=== PATIENT | female | born 1950 | race Caucasian/White ===

== ENCOUNTER 2023-02-24 17:24 | Emergency (ER) | payer MEDICARE, OTHER ==
[~2023-02-24] VITALS: Ht 157.5 cm; Wt 47.7 kg
[~2023-02-24 17:24] MED LIST: ALBU17AE26 PO; ALPR-624 PO; ASPI-1265 PO; BACL10TA2 PO; BUDE10.2 PO; CIPR250T26 PO; CITA20TA28 PO; FAMO20TA8 PO; IBUP-1986 PO; METR-159 PO; PER5325T PO; TRIA1TAB5 PO
[2023-02-25 00:13] VITALS: BP 142/85
[2023-02-25] MEDS ORDERED: ibuprofen tablet 400 MG TABLET PO ONE (01:30)
== END 2023-02-25 06:28 | disposition home or self-care (01) ==
LOC: ER 17:25
DX: S80.12XA Contusion of left lower leg, initial encounter (principal); R60.0 Localized edema; W18.39XA Other fall on same level, initial encounter; Y93.89 Activity, other specified; Y92.89 Other specified places as the place of occurrence of the external cause; Y99.8 Other external cause status
CPT/HCPCS: 71045; 73502; 73551; 73590; 93971; 99284

== ENCOUNTER 2023-03-06 12:33 | Outpatient (CLI) | payer MEDICARE, OTHER | END 2023-03-06 23:59 | disposition home or self-care (01) | LOC: VAS 12:33 | PROVIDERS: ATTEND Family Medicine | DX: R60.0 Localized edema (principal) | CPT/HCPCS: 93971 ==

== ENCOUNTER 2024-05-30 17:29 | Inpatient (IN) | payer MEDICARE, OTHER ==
[~2024-05-30] VITALS: Ht 160 cm; Wt 50.6 kg
[2024-05-30 18:27] LABS: BASOPHILS % (AUTO) 0.2 % (0-1); EOSINOPHILS % (AUTO) 0 % (0-6); HEMATOCRIT 35.2 % (35.0-45.0); LYMPHOCYTES # (AUTO) 0.7 X10'3 (1.1-4.8); LYMPHOCYTES % (AUTO) 5.7 % (21-51); MEAN CORPUSCULAR HEMOGLOBIN 25.3 PG (27.0-31.0); MEAN CORPUSCULAR HGB CONC 31.3 g/dL (33.0-36.5); MEAN PLATELET VOLUME 7.4 FL (7.4-10.4); MONOCYTES # (AUTO) 1.5 X10'3 (0-0.9); MONOCYTES % (AUTO) 11.1 % (2-12); NEUTROPHILS # (AUTO) 10.9 X10'3 (1.8-7.7); PLATELET COUNT 305 X10'3 (140-440); RED BLOOD COUNT 4.34 X10'6 (4.20-5.60); RED CELL DISTRIBUTION WIDTH 19.1 % (11.5-14.5); WHITE BLOOD COUNT 13.1 X10'3 (4.5-11.0)
[2024-05-30 18:39] LABS: BILIRUBIN,URINE NEGATIVE (Neg); CLARITY,URINE CLEAR (Clear); COLOR,URINE YELLOW (Yellow); GLUCOSE, URINE NEGATIVE (Neg); KETONES,URINE TRACE mg/dl (Neg); LEUKOCYTE ESTERASE ,URINE NEGATIVE (Neg); NITRITES, URINE NEGATIVE (Neg); OCCULT BLOOD,URINE NEGATIVE (Neg); PROTEIN,URINE NEGATIVE (Neg); UROBILINOGEN,URINE 0.2 E.U/dL (0.2-1.0)
[2024-05-30 18:42] LABS: ALBUMIN 3.4 G/DL (3.4-5.0); ANION GAP 7 (8-16); BLOOD UREA NITROGEN 22 MG/DL (7-18); BUN/CREATININE RATIO 23.9 (10.0-20.0); CALCIUM 8.5 MG/DL (8.5-10.1); CHLORIDE 104 MMOL/L (99-107); CREATININE 0.92 MG/DL (0.40-0.90); GLUCOSE 107 MG/DL (70-104); SODIUM 139 MMOL/L (135-145); TOTAL CARBON DIOXIDE 27.6 MMOL/L (24-32); eCRCL 42 ML/MIN; eGFR 60 ML/MIN
[2024-05-30 18:51] LABS: UA COLLECTION TYPE STRAIGHT CATH
[2024-05-30] MEDS ORDERED: iohexol 300mg/ml 100ml inj. ONE (18:51)
[2024-05-30 19:12] LABS: ALANINE AMINOTRANSFERASE 32 U/L (12-78); ALBUMIN/GLOBULIN RATIO 1.1 (1.1-1.5); ALKALINE PHOSPHATASE 80 IU/L (46-116); ASPARTATE AMINO TRANSFERASE 29 U/L (10-37); BILIRUBIN,DIRECT 0.1 MG/DL (0-0.3); BILIRUBIN,TOTAL 0.4 MG/DL (0.1-1.0); CREATINE KINASE 386 U/L (26-192); TOTAL PROTEIN 6.6 G/DL (6.4-8.2)
[2024-05-30] MEDS: normal saline 1000ml 1,000 ML IV ONE (19:19)
[2024-05-30] MEDS: cefepime 2g/NS 100ml ADVANTAGE 100 ML IV SCH (19:19)
[2024-05-30] MEDS: vancomycin/NS 1 GM ADD-VANTAGE 250 ML X 1 DOSE IV ONE (19:53)
[2024-05-30] MEDS: metroNIDAZOLE-Flagyl 500mg/NS 100 ML IV STA (20:55)
[2024-05-30] MEDS: morphine 2 MG/ML inj. syringe IV ONE (21:52)
[2024-05-30] MEDS ORDERED: magnesium Cl slow-release 64mg tablet PO PRN (22:50)
[2024-05-30] MEDS ORDERED: mag hydrox/Alum hydrox/simeth 30ml oral suspension PO PRN (22:50)
[2024-05-30] MEDS ORDERED: magnesium sulf-water 4G/100mL 100 ML IV PRN (22:50)
[2024-05-30] MEDS ORDERED: potassium Cl 20 mEq SR tablet PO PRN (22:50)
[2024-05-30] MEDS ORDERED: magnesium hydroxide 30ml (MOM) UD suspension PO PRN (22:50)
[2024-05-30] MEDS ORDERED: magnesium sulf-water 2g/50mL 50 ML IV PRN (22:50)
[2024-05-30] MEDS ORDERED: potassium Cl 40MEQ/1/2NS 520ml 520 ML IV PRN (22:50)
[2024-05-30] MEDS: normal saline 1000ml 1,000 ML IV SCH (23:14)
[2024-05-30 23:23] LABS: MAGNESIUM 1.7 MG/DL (1.5-2.4); PHOSPHORUS 3.9 MG/DL (2.3-4.5); PRO BRAIN NATRIURETIC PEPTIDE 251 PG/ML (0-450)
[2024-05-30 23:28] LABS: HEMOGLOBIN A1C 5.4 % (4.5-6.2)
[2024-05-31] VITALS (7 sets, daily range): BP systolic 149–151; BP diastolic 52–94; PULSE 76–91; RESP 16–20; TEMP 97.8–98.5; O2SAT 91–98
[2024-05-31 00:25] LABS: THYROID STIMULATING HORMONE 0.93 ulU/ml (0.34-4.50)
[2024-05-31] MEDS: morphine 2 MG/ML inj. syringe IV PRN (02:12)
[2024-05-31] MEDS ORDERED: LORazepam 2 mg/ml vial IV PRN (02:45)
[2024-05-31 04:07] LABS: EOSINOPHILS % (AUTO) 0.2 % (0-6)
[2024-05-31 04:08] LABS: BASOPHILS % (AUTO) 0.3 % (0-1); HEMATOCRIT 30.7 % (35.0-45.0); HEMOGLOBIN 9.5 g/dl (12.0-16.0); LYMPHOCYTES # (AUTO) 0.9 X10'3 (1.1-4.8); LYMPHOCYTES % (AUTO) 9.4 % (21-51); MEAN CORPUSCULAR HEMOGLOBIN 25.3 PG (27.0-31.0); MEAN CORPUSCULAR VOLUME 81.6 FL (78-98); MEAN PLATELET VOLUME 7.3 FL (7.4-10.4); MONOCYTES # (AUTO) 1.5 X10'3 (0-0.9); MONOCYTES % (AUTO) 15.3 % (2-12); NEUTROPHILS # (AUTO) 7.3 X10'3 (1.8-7.7); NEUTROPHILS % (AUTO) 74.8 % (42-75); PLATELET COUNT 272 X10'3 (140-440); RED BLOOD COUNT 3.76 X10'6 (4.20-5.60); RED CELL DISTRIBUTION WIDTH 18.9 % (11.5-14.5); WHITE BLOOD COUNT 9.7 X10'3 (4.5-11.0)
[2024-05-31 04:23] LABS: ALANINE AMINOTRANSFERASE 27 U/L (12-78); ALBUMIN 2.9 G/DL (3.4-5.0); ALKALINE PHOSPHATASE 67 IU/L (46-116); ANION GAP 7 (8-16); ASPARTATE AMINO TRANSFERASE 22 U/L (10-37); BILIRUBIN,TOTAL 0.4 MG/DL (0.1-1.0); BLOOD UREA NITROGEN 17 MG/DL (7-18); BUN/CREATININE RATIO 23.3 (10.0-20.0); CALCIUM 8.1 MG/DL (8.5-10.1); CHLORIDE 111 MMOL/L (99-107); CHOL/HDL RATIO 1.9 (0.00-4.99); CHOLESTEROL 150 MG/DL (0-200); CREATININE 0.73 MG/DL (0.40-0.90); GLUCOSE 98 MG/DL (70-104); HDL CHOLESTEROL 77 MG/DL (35-60); LDL CHOLESTEROL 58 MG/DL (50-100); MAGNESIUM 1.6 MG/DL (1.5-2.4); POTASSIUM 3.7 MMOL/L (3.5-5.1); SODIUM 143 MMOL/L (135-145); TOTAL CARBON DIOXIDE 24.9 MMOL/L (24-32); TOTAL PROTEIN 5.7 G/DL (6.4-8.2); TRIGLYCERIDES 94 MG/DL (20-135); eCRCL 53 ML/MIN; eGFR 78 ML/MIN
[2024-05-31 04:48] LABS: BASOPHILS % (MANUAL) 1 % (0-1); LYMPHOCYTES % (MANUAL) 7 % (21-51); MONOCYTES % (MANUAL) 9 % (2-12); NEUTROPHILS % (MANUAL) 83 % (42-75); TOTAL CELLS COUNTED 100
[2024-05-31 04:49] LABS: PLATELET ESTIMATE NORMAL
[2024-05-31 04:50] LABS: ANISOCYTOSIS 1+; ELLIPTOCYTES FEW
[2024-05-31] MEDS: ipratropium/albuterol 3ml nebule NEB PRN (07:16)
[2024-05-31] MEDS: docusate sod 100mg capsule PO SCH (08:00)
[2024-05-31] MEDS: K and/or MAG REPLACEMENT MC SCH (08:00)
[2024-05-31] MEDS: ondansetron/PF 4mg/2ml inj IV PRN (08:59)
[2024-05-31] MEDS: CefTRIAXone/D5W-Rocephin 1gm 50 ML IV SCH (09:33)
[2024-05-31] MEDS: metroNIDAZOLE-Flagyl 500mg/NS 100 ML IV SCH (13:39)
[2024-06-01] MEDS: acetaminophen 325mg tablet PO PRN (00:16)
[2024-06-01 02:40] VITALS: PULSE 83; RESP 16; O2SAT 94
[2024-06-01 06:00] VITALS: BP 167/74; PULSE 67; RESP 18; TEMP 98.8; O2SAT 98
[2024-06-01 06:09] LABS: BASOPHILS % (AUTO) 0.6 % (0-1); EOSINOPHILS # (AUTO) 0.1 X10'3 (0-0.9); EOSINOPHILS % (AUTO) 0.8 % (0-6); HEMATOCRIT 29.5 % (35.0-45.0); HEMOGLOBIN 9.2 g/dl (12.0-16.0); LYMPHOCYTES # (AUTO) 1.2 X10'3 (1.1-4.8); LYMPHOCYTES % (AUTO) 19.9 % (21-51); MEAN CORPUSCULAR HEMOGLOBIN 25.2 PG (27.0-31.0); MEAN CORPUSCULAR HGB CONC 31.1 g/dL (33.0-36.5); MEAN PLATELET VOLUME 7.6 FL (7.4-10.4); MONOCYTES # (AUTO) 1.1 X10'3 (0-0.9); MONOCYTES % (AUTO) 18.1 % (2-12); NEUTROPHILS # (AUTO) 3.7 X10'3 (1.8-7.7); NEUTROPHILS % (AUTO) 60.6 % (42-75); PLATELET COUNT 246 X10'3 (140-440); RED BLOOD COUNT 3.64 X10'6 (4.20-5.60); RED CELL DISTRIBUTION WIDTH 18.6 % (11.5-14.5); WHITE BLOOD COUNT 6.2 X10'3 (4.5-11.0)
[2024-06-01 06:29] LABS: ALANINE AMINOTRANSFERASE 24 U/L (12-78); ALBUMIN 2.6 G/DL (3.4-5.0); ALKALINE PHOSPHATASE 56 IU/L (46-116); ANION GAP 7 (8-16); ASPARTATE AMINO TRANSFERASE 16 U/L (10-37); BILIRUBIN,TOTAL 0.3 MG/DL (0.1-1.0); BLOOD UREA NITROGEN 12 MG/DL (7-18); CALCIUM 8.3 MG/DL (8.5-10.1); CHLORIDE 109 MMOL/L (99-107); GLUCOSE 93 MG/DL (70-104); MAGNESIUM 1.6 MG/DL (1.5-2.4); POTASSIUM 3.2 MMOL/L (3.5-5.1); SODIUM 141 MMOL/L (135-145); TOTAL CARBON DIOXIDE 25.4 MMOL/L (24-32); TOTAL PROTEIN 5.3 G/DL (6.4-8.2); eCRCL 65 ML/MIN; eGFR > 90 ML/MIN
[2024-06-01] MEDS: potassium Cl 20 mEq SR tablet PO PRN (07:47)
[2024-06-01 08:00] VITALS: RESP 18; O2SAT 98
[2024-06-01 09:10] LABS: ANISOCYTOSIS 2+; HYPOCHROMASIA 1+; NUCLEATED RED BLOOD CELLS 1 /100WBC (0-0); PLATELET ESTIMATE NORMAL; TOTAL CELLS COUNTED 100
[2024-06-01 09:11] LABS: ELLIPTOCYTES FEW
[2024-06-01 10:00] VITALS: BP 170/81; PULSE 85; RESP 16; TEMP 97.5; O2SAT 97
[2024-06-01] MEDS ORDERED: METR-159 PO (11:02)
[2024-06-01] MEDS ORDERED: CEFD300C3 PO (11:02)
[2024-06-01 12:06] VITALS: PULSE 82; RESP 20; O2SAT 98
[2024-06-01] MEDS ORDERED: LISINOPRIL 5 MG PO (13:37)
[2024-06-01] MEDS ORDERED: CARV3.122 PO (13:38)
== END 2024-06-01 18:12 | disposition home health service (06) | DRG 871 ==
LOC: ER 17:30 → ED HOLD 22:54 → ORTHO 4S 05-31 06:59
PROVIDERS: ADMIT Internal Medicine Critical Care Medicine; ATTEND Internal Medicine
DX: A41.9 Sepsis, unspecified organism (principal); G93.41 Metabolic encephalopathy; N17.9 Acute kidney failure, unspecified; A09 Infectious gastroenteritis and colitis, unspecified; Z20.822 Contact with and (suspected) exposure to COVID-19; I10 Essential (primary) hypertension; J44.9 Chronic obstructive pulmonary disease, unspecified; F41.9 Anxiety disorder, unspecified; G89.29 Other chronic pain; D64.9 Anemia, unspecified; E87.6 Hypokalemia; Z99.81 Dependence on supplemental oxygen; Z88.8 Allergy status to other drugs, medicaments and biological substances; Z79.51 Long term (current) use of inhaled steroids; D53.9 Nutritional anemia, unspecified
CPT/HCPCS: 36415; 70450; 71045; 74177; 80048; 80053; 80061; 80076; 81003; 82140; 82550; 82607; 83036; 83605; 83735; 83880; 84100; 84145; 84443; 85007; 85025; 87040; 87081; 87502; 87503; 87634; 87811; 92508; 92616; 93005; 94640; 94760; 96365; 96366; 96368; 96375; 97110; 97162; 97530; 99291; A4353; A4615; A6446; G0378; J0692; J0696; J2270; J2405; J3370; J3490; J7030; Q9967